=== PATIENT | male | born 1975 | race Caucasian/White ===

== ENCOUNTER 2021-05-11 01:32 | Outpatient (CLI) | payer BC, SELFPAY ==
--- NOTE | 2021-05-11 | DI.RAD_ITS ---
Exam(s) RF BARIUM SWALLOW EXAM: RF BARIUM SWALLOW CLINICAL HISTORY: DYSPHAGIA PHARYNGEAL PHASE, R13.13 TECHNIQUE: 2D and realtime digital imaging was performed. CONTRAST MATERIAL: Oral barium contrast was administered. COMPARISON: No exams were available for comparison FINDINGS: CHEST X-RAY: The heart and pulmonary vasculature are within normal limits. The lungs are clear. No pl eural effusion or pneumothorax is present. The bones are within normal limits fo the patient's age. ESOPHAGRAM: The esophagus is patent with no evidence for erosions, fold thickening, strictures, or ma sses. With regards to the motility, there is a normal primary stripping wave. The patient swallowed a barium tablet without complication. No tertiary contractions were noted. There is a small hiatal h ernia. No gastroesophageal reflux occurred during the examination. Penetration of barium did occur during the examination but no aspiration occurred. IMPRESSION: 1. Small hiatal hernia. 2. No evidence of obstruction or aspiration. RADIATION DOSE DELIVERED: Ka,r=22.8 mGy
[2021-05-11] MEDS: Barium Sulfate 60% W/V 355 ML BTL PO (11:17)
[2021-05-11] MEDS: Barium Sulfate 700 MG TAB PO (11:17)
[2021-05-11] MEDS: Simethicone/Sod Bicarb/Cit Ac, 4 gram PACKET 1 PACKET PO (11:18)
== END 2021-05-11 01:52 ==
PROVIDERS: PCP Nurse Practitioner; Visit Provider Family Medicine
DX: R13.13 Dysphagia, pharyngeal phase (principal); K44.9 Diaphragmatic hernia without obstruction or gangrene
CPT/HCPCS: 74221; J3490

== ENCOUNTER 2021-10-01 01:15 | Outpatient (CLI) | payer BC, SELFPAY ==
[2021-10-01 12:33] LABS: Source Nasal/Nares
[2021-10-01 19:01] LABS: COVID-19 PCR Negative (Negative)
== END 2021-10-01 01:16 | disposition home or self-care (01) ==
LOC: LBO 01:18
PROVIDERS: PCP Family Medicine; Visit Provider Surgery
DX: Z20.822 Contact with and (suspected) exposure to COVID-19 (principal); Z01.818 Encounter for other preprocedural examination
CPT/HCPCS: 87635

== ENCOUNTER 2021-12-03 02:53 | Outpatient (CLI) | payer BC, SELFPAY ==
[2021-12-03 12:44] LABS: Source Nasal/Nares
[2021-12-03 15:37] LABS: COVID-19 PCR Negative (Negative)
== END 2021-12-03 02:54 | disposition home or self-care (01) ==
PROVIDERS: PCP Family Medicine; Visit Provider Surgery
DX: Z20.822 Contact with and (suspected) exposure to COVID-19 (principal); Z01.818 Encounter for other preprocedural examination
CPT/HCPCS: 87635

== ENCOUNTER 2021-12-05 09:03 | Day surgery (SDC) | payer BC, SELFPAY ==
--- NOTE | 2021-12-05 06:32 | W.PM.HP.N ---
Date of service: 12/05/21 Assessment and Plan Assessment and plan (1) Esophageal dysphagia: Status: Acute Assessment and plan: Mr. Burkett is a pleasant 46-year-old gentleman with dysphagia.? Barium swallow back in 2016 showed a small hiatal hernia and no evidence of obstruction.? I discussed the differential diagnosis with him.? Most commonly dysphagia is due to reflux esophagitis.? Other diagnoses could be a mass although this is quite unlikely with a normal barium swallow in 2017.? He also could have dysmotility which again is more rare.? I recommend starting with an upper endoscopy.? The procedure was described to him in detail and with reviewed the risks and the benefits. Risks, benefits and complications have been reviewed. Complications include but are not limited to bleeding, pain, perforation, sore throat, aspiration, and adverse reaction to the medications.? Questions were entertained and answered to their satisfaction and they wished to proceed. No guarantees were given or implied. Proceed with EGD under sedation History of Present Illness Narrative: Mr. Burkett is a 46-year-old gentleman who has been having dysphagia symptoms for 4 to 5 years.? He said it started about 4 to 5 years ago at that time it was a yearly occurrence.? In the last couple years it started to become a monthly occurrence and now it has at least once or twice a week.? He feels like things are getting stuck in esophagus.? It is mostly solids.? Sometimes he has to make himself gag in order for it to come back up.? He does feel like the food has gotten stuck a couple times for a few hours before it eventually went down into his stomach.? He has no nausea or vomiting.? He does not complain of any heartburn or reflux type symptoms.? He is not taking any antacids.? He has no shortness of breath.? He also complains of a morning cough which usually is productive of very thick white to pale yellow mucus.? He did see Dr. Perdomo and had a barium swallow done in April of 2017.? The barium swallow showed a small hiatal hernia but no evidence of obstruction he has never had an upper endoscopy.? He has no family history of esophageal or gastric cancer.? His mother did have pancreatic cancer in her early 60s.? He had a colonoscopy many years ago and apparently had some benign polyps.? He states that it was done in [place].? I will see if his primary care physician has the records of this colonoscopy. He has no cardiac history.? He denies chest pain or shortness of breath with activity. Current symptoms: Denies dysphagia, Denies hoarseness and Denies cough Review of Systems All systems reviewed & are unremarkable except as noted in HPI and below PFSH All Active Problems Esophageal dysphagia (Acute) Medical History Acne rosacea Allergic rhinitis Ankle pain, right Dysphagia, pharyngeal phase Eczema Family history of prostate cancer Follicular cyst of skin and subcutaneous tissue Lower urinary tract symptoms Obstructive sleep apnea Pain in right shoulder Skin lesion Tinea unguium Surgical History H/O removal of neck cyst @ [facility] – [place] - Teenager History of colonoscopy with polypectomy Family History Mother Pancreatic cancer Father CHF (congestive heart failure) Maternal Uncle History of prostate cancer Social History Smoking/Tobacco Use Status: Never Smoking risk assessment performed?: Yes Alcohol Intake: never Drug use: Never Substance use type: does not use Number of Children: 2 Pets and animals: Yes (2) Pets and animals: dog(s) Do you feel safe at home: Yes Do you feel safe in your relationship?: Yes Meds Allergies and Home Medications Allergies Allergy/AdvReac Type Severity Reaction Status Date / Time No Known Allergies Allergy Unverified 12/04/21 11:39 Dust mites Allergy Uncoded 12/04/21 11:39 Home Medications Medication Instructions Recorded Confirmed Type desloratadine-pseudoephedrine ER 1 tab PO Q12H PRN 05/18/21 12/04/21 History 2.5 mg-120 mg tab,ext.release mp 12hr (Clarinex-D 12 HOUR) multivitamin 1 tab PO DAILY 07/10/21 12/04/21 History Exam HENMT Head: normocephalic and atraumatic Resp Effort & Inspection: normal respiratory effort Auscultation: clear to auscultation bilaterally Cardio Rate: regular rate Rhythm: regular rhythm
--- NOTE | 2021-12-05 06:34 | W.PM.DSUDISC ---
Discharge Plan Disposition Patient Disposition: HOME Condition: Good Discharge Details Reason For Visit: EGD Attending Provider: Yue Jerome Primary Care Provider: Donell Mccullough Home Meds and New Rx's Prescriptions: No Action multivitamin Tablet 1 tab PO DAILY Clarinex-D 12 HOUR 2.5-120 mg tablet, ER multiphase 12 hr 1 tab PO Q12H PRN Discharge Instructions Additional Instructions: Findings: Follow up: Please call if you develop: fevers >101.5 Nausea or Vomiting Abdominal pain that is not transient Rectal bleeding that is more then a tbsp A hard abdomen and inability to pass gas DAY SURGERY UNIT POST ENDOSCOPY INSTRUCTIONS Instructions for everyone who is given Anesthesia: For your safety, please do the following for the next 24 Hours: a. Do not drive or operate dangerous equipment b. Do not drink alcohol beverages or use any recreational drugs for the first 24 hours or while taking pain medications. The medications in your body may have a reaction that can be dangerous. c. Do not make any important decisions or sign any important papers 1. Generally there are no restrictions on your activity after a day or so has gone by, but you may feel a bit fatigued for a few days. 2. After you arrive home you may have a light meal and return to a normal diet as you can tolerate it without feeling sick to your stomach. 3. After surgery, you may feel pain or discomfort. This should be only transient, but if it persists please contact your doctor. 4. If there are any questions regarding the findings of your procedure, please feel free to contact your doctor. 6. If you are unable to contact your doctor with a problem, contact the hospital at [phone]. 7. Continue all your regular medications unless directed otherwise. I understand the above instructions and have no questions. Signature of Patient or Responsible Adult Escort Date/Time Name of Responsible Adult Escort Signature of Nurse Date/Time Activity:: Activity as Tolerated Diet:: As Tolerated DS: Diagnosis Discharge Diagnosis (1) Esophageal dysphagia: Status: Acute
[2021-12-05 09:10] VITALS: BP 116/91; PULSE 84; RESP 18; O2SAT 97
[2021-12-05] MEDS: Lactated Ringers 1,000 ML 80 ML IV (09:45)
--- NOTE | 2021-12-05 09:51 | W.ANESPRE ---
General Info Date of Service Date Performed: 12/05/21 Height: 5 ft 9 in Weight: 93.9 kg Body Mass Index (BMI): 30.5 Surgical Procedure: Operation Date: 12/05/21 11:20 Proposed Procedure Side Surgeon p Gastroscopy Yue Jerome MD Meds Allergies and Home Medications Allergies Allergy/AdvReac Type Severity Reaction Status Date / Time No Known Allergies Allergy Unverified 12/05/21 09:29 Dust mites Allergy Uncoded 12/05/21 09:29 Home Medication Medication Instructions Recorded desloratadine-pseudoephedrine ER 1 tab PO Q12H PRN 05/18/21 2.5 mg-120 mg tab,ext.release mp 12hr (Clarinex-D 12 HOUR) multivitamin 1 tab PO DAILY 07/10/21 acetylcysteine 600 mg capsule (NAC) 600 mg PO BID 12/05/21 ascorbic acid (vitamin C) 1,000 mg 1 g PO BID 12/05/21 tablet (Vitamin C) Current Visit Medications: Current Medications Generic Name Dose Route Start Last Admin Trade Name Percyq PRN Reason Stop Dose Admin Hyoscyamine Sulfate 0.125 mg 12/05/21 06:35 Hyoscyamine 0.125 Mg Sl/Oral/Chew SL DIRECTED PRN Ringer's Solution 1,000 mls @ 80 mls/hr 12/05/21 06:00 IV 01/03/22 23:59 [facility] IV Miscellaneous Supplies 1 each 12/05/21 06:00 Iv Access IV 01/03/22 23:59 DIRECTED ARJUN Ondansetron HCl 4 mg 12/05/21 06:35 Ondansetron 4 Mg/2 Ml Vial IVP Q4H PRN PRN Nausea / Vomiting Sodium Chloride 0 ml 12/05/21 06:00 Normal Saline Flush 10 Ml Syr IV 01/03/22 23:59 PRN PRN Sodium Chloride 0 ml 12/05/21 06:00 Normal Saline 10 Ml Vial IJ 01/03/22 23:59 DIRECTED PRN Sterile Water 0 ml 12/05/21 06:00 Water,Injection,Sterile 10 Ml Vial IJ 01/03/22 23:59 DIRECTED PRN PFSH Active Problems Active Problems: Problem Status Onset Code Esophageal dysphagia R13.19 Medical History Medical History Acne rosacea Allergic rhinitis Ankle pain, right Dysphagia, pharyngeal phase Eczema Family history of prostate cancer Follicular cyst of skin and subcutaneous tissue Lower urinary tract symptoms Obstructive sleep apnea Pain in right shoulder Skin lesion Tinea unguium Surgical History Surgical History H/O removal of neck cyst @ [facility] [place] - Teenager History of colonoscopy with polypectomy Tobacco Smoking/Tobacco Use Status: Never Alcohol Alcohol Intake: never Substance Use Substance use: Never Substance use type: does not use Vital Signs and Lab Results Vital Signs Most Recent Vital Signs in EMR: Most Recent Vital Signs Pulse Resp BP Pulse Ox 84 18 116/91 H 97 12/05/21 09:10 12/05/21 09:10 12/05/21 09:10 12/05/21 09:10 Lab Results Blood Type / Crossmatch: No Data to Display Complete Blood Count: No Data to Display Complete Metabolic Panel: No Data to Display Liver Function Panel: No Data to Display Coagulation Panel: No Data to Display Cardiac Panel: No Data to Display Arterial Blood Gas: No Data to Display Venous Blood Gas: No Data to Display Pancreas Panel: No Data to Display Thyroid Panel: No Data to Display Infectious Disease: Coronavirus (COVID-19)(PCR) Negative (Negative) 12/03/21 10:20 Coronavirus 2019 Source Nasal/Nares 12/03/21 10:20 Blood Cultures: No Data to Display Toxicology Panel: No Data to Display Anesthesia Assessment and Plan Anesthesia History Personal History: No History of Anesthesia Complications Family History: No Family History of Anesthesia Complications Exercise Tolerance Exercise Tolerance: Metabolic Equivalents>4 Pertinent Negatives Pertinent Negatives: No Symptoms of GERD, No Major Cardiovascular Symptoms or Complaints and No Major Pulmonary Symptoms or Complaints Cardiac & Pulmonary Exam Cardiac Exam: Normal S1/S2 Heart Sounds Pulmonary Exam: Clear Bilateral Breath Sounds Implantable Cardiac Device Does patient have a Pacemaker or an ICD?: No Airway Exam Known Difficult Airway: No ASA Classification ASA Score: ASA 2 Emergency Case?: No NPO Status NPO Status: NPO Clears >2 hours, Solids >8 hours Anesthesia Plan Resuscitation Status: Full Code Anesthesia Technique: General Anesthesia Airway Planned: Natural Airway Monitors Used: Standard Monitors
--- NOTE | 2021-12-05 10:16 | PDOC.ANES ---
Date of service: 12/05/21 Time of Service: 10:17 Anesthesia Note Report Anesthesia Note: Evaluated patient at beside and appears somewhat unwell. Patient reports a hoarse voice and has some swollen eyes. Over the weekend, reports feeling achy with a scratchy throat. Discussed constellation of symptoms with Dr. Jerome, and both of us are in agreeance to postpone for 2-4/weeks until patient as baseline. Patient verbalizes understanding and will call the office to reschedule.
--- NOTE | 2021-12-05 10:39 | NUR.NOTE ---
Addendum entered by Jane Tavera 12/05/21 10:47: Pt. to contact MD office to reschedule Original Note: 1010: Katie Mendes CRNA, in to see pt. MICH explained to pt. that she had spoken to MD and because of his recent symptoms (hoarse throat) it is best to postpone procedure for 2-4 weeks when he is symptom free. Pt. agreeable to plan. Breakfast provided to pt. Pt. contacted spouse who will be here in 1/2 hour to pick him up, [place] 1035: Pt. given option to wait in DSU, in waiting room or outside for ride since he did not receive anesthesia. Pt. escorted from DSU by this nurse.Nursing Note:
== END 2021-12-05 09:04 | disposition home or self-care (01) ==
LOC: SUR 09:04
PROVIDERS: PCP Family Medicine; Visit Provider Surgery
DX: R13.10 Dysphagia, unspecified (principal); Z53.8 Procedure and treatment not carried out for other reasons

== ENCOUNTER 2021-12-28 08:49 | Outpatient (CLI) | payer BC, MEDICAID, SELFPAY ==
--- NOTE | 2021-12-28 08:30 | DI.RAD_ITS ---
Exam(s) XR SHOULDER RT COMPLETE 2+V EXAM: XR SHOULDER RT COMPLETE 2+V CLINICAL HISTORY: RIGHT SHOULDER PAIN. TECHNIQUE: 2D digital imaging was performed of the right shoulder. Four images were obtained. AP, Grashey, Y-view and axillary views were obtained. COMPARISON: No exams were available for comparison FINDINGS: BONES: No acute fracture is present. No bony destructive lesion is seen. JOINTS: No dislocation present. SOFT TISSUE: Calcification adjacent to the greater tuberosity consistent with calcific tendinitis. IMPRESSION: Calcific tendinitis. DATA REPOSITORY: RADIATION DOSE DELIVERED:
== END 2021-12-28 08:50 | disposition home or self-care (01) ==
LOC: DIORS 08:49
PROVIDERS: PCP Family Medicine; Referring Provider Family Medicine; Visit Provider Student in an Organized Health Care Education/Training Program
DX: M75.31 Calcific tendinitis of right shoulder (principal)
CPT/HCPCS: 73030

== ENCOUNTER 2022-01-07 02:25 | Outpatient (CLI) | payer BC, MEDICAID, SELFPAY ==
[2022-01-07 10:44] LABS: Source Nasal/Nares
[2022-01-07 15:46] LABS: COVID-19 PCR Positive (Negative)
== END 2022-01-07 02:26 | disposition home or self-care (01) ==
LOC: LBO 02:25
PROVIDERS: PCP Family Medicine; Visit Provider Surgery
DX: Z20.822 Contact with and (suspected) exposure to COVID-19 (principal); Z01.818 Encounter for other preprocedural examination
CPT/HCPCS: 87635

== ENCOUNTER 2022-03-13 07:59 | Day surgery (SDC) | payer BC, MEDICAID, SELFPAY ==
--- NOTE | 2022-03-13 06:26 | W.PREOPHP ---
Assessment and Plan Assessment and plan (1) Esophageal dysphagia: Status: Acute Assessment and plan: Mr. Burkett is a pleasant 46-year-old gentleman with dysphagia.? Barium swallow back in 2017 showed a small hiatal hernia and no evidence of obstruction.? I discussed the differential diagnosis with him.? Most commonly dysphagia is due to reflux esophagitis.? Other diagnoses could be a mass although this is quite unlikely with a normal barium swallow in 2017.? He also could have dysmotility which again is more rare.? I recommend starting with an upper endoscopy.? The procedure was described to him in detail and with reviewed the risks and the benefits. Risks, benefits and complications have been reviewed. Complications include but are not limited to bleeding, pain, perforation, sore throat, aspiration, and adverse reaction to the medications.? Questions were entertained and answered to their satisfaction and they wished to proceed. No guarantees were given or implied. Anesthesia: general (without airway) Previous surgical intolerances: No Previous surgical complications: No Pulmonary risk factors: No Date of surgery: 03/13/22 Planned procedure: Yes Sleep apnea risks: No Can climb one flight of stairs (12-13 steps) in less than 30 seconds without stopping and without symptoms: Yes The surgery proposed for this patient is: low risk Active cardiac conditions: none Active risk factors: none ASA (acetylsalicylic acid): not used Beta blockers: not used Proceed with EGD under sedation History of Present Illness Narrative: Mr. Burkett is a 46-year-old gentleman who has been having dysphagia symptoms for 4 to 5 years.? He said it started about 4 to 5 years ago at that time it was a yearly occurrence.? In the last couple years it started to become a monthly occurrence and now it has at least once or twice a week.? He feels like things are getting stuck in esophagus.? It is mostly solids.? Sometimes he has to make himself gag in order for it to come back up.? He does feel like the food has gotten stuck a couple times for a few hours before it eventually went down into his stomach.? He has no nausea or vomiting.? He does not complain of any heartburn or reflux type symptoms.? He is not taking any antacids.? He has no shortness of breath.? He also complains of a morning cough which usually is productive of very thick white to pale yellow mucus.? He did see Dr. Perdomo and had a barium swallow done in April of 2017.? The barium swallow showed a small hiatal hernia but no evidence of obstruction. He has never had an upper endoscopy.? He has no family history of esophageal or gastric cancer.? His mother did have pancreatic cancer in her early 60s.? He had a colonoscopy many years ago and apparently had some benign polyps.? He states that it was done in [place].? I will see if his primary care physician has the records of this colonoscopy. He has no cardiac history.? He denies chest pain or shortness of breath with activity. Current symptoms: Denies dysphagia, Denies hoarseness and Denies cough Review of Systems All systems reviewed & are unremarkable except as noted in HPI and below PFSH All Active Problems Tendonitis of long head of biceps brachii of right shoulder (Acute) De Quervain's tenosynovitis, left (Acute) Calcific tendinitis of right shoulder (Acute) Steroid injection: 12/28/2021 Esophageal dysphagia (Acute) Medical History Acne rosacea Allergic rhinitis Ankle pain, right Dysphagia, pharyngeal phase Eczema Family history of prostate cancer Follicular cyst of skin and subcutaneous tissue Lower urinary tract symptoms Obstructive sleep apnea Pain in right shoulder Skin lesion Tinea unguium [place] [facility] [place] History of colonoscopy with polypectomy Family History Mother Pancreatic cancer Father CHF (congestive heart failure) Maternal Uncle History of prostate cancer Social History Smoking/Tobacco Use Status: Never Smoking risk assessment performed?: Yes Alcohol Intake: never Drug use: Never Substance use type: does not use Number of Children: 2 Pets and animals: Yes (2) Pets and animals: dog(s) Do you feel safe at home: Yes Do you feel safe in your relationship?: Yes Meds Allergies and Home Medications Allergies Allergy/AdvReac Type Severity Reaction Status Date / Time No Known Allergies Allergy Verified 03/13/22 08:03 Dust mites Allergy Uncoded 03/12/22 13:49 Home Medications Medication Instructions Recorded Confirmed Type desloratadine-pseudoephedrine ER 1 tab PO Q12H PRN 05/18/21 03/12/22 History 2.5 mg-120 mg tab,ext.release mp 12hr (Clarinex-D 12 HOUR) multivitamin 1 tab PO DAILY 07/10/21 03/13/22 History acetylcysteine 600 mg capsule (NAC) 600 mg PO BID 12/05/21 03/13/22 History ascorbic acid (vitamin C) 1,000 mg 1 g PO BID 12/05/21 03/13/22 History tablet (Vitamin C) cholecalciferol (vitamin D3) 10 10 mcg PO DAILY 02/22/22 03/13/22 History mcg (400 unit) capsule zinc acetate 50 mg (zinc) capsule 50 mg PO DAILY 02/22/22 03/13/22 History (Oseas) Exam Const General: comfortable and no acute distress [facility] Head: normocephalic and atraumatic Resp Effort & Inspection: normal respiratory effort Auscultation: clear to auscultation bilaterally Cardio Rate: regular rate Rhythm: regular rhythm
--- NOTE | 2022-03-13 06:30 | W.PM.ENDDOP ---
Date of service: 03/13/22 Time of Service: 09:21 Endoscopy Report DATE OF PROCEDURE: 03/13/22 PRE-OP DIAGNOSIS: Dysphagia POST-OP DIAGNOSIS: same (and inflammation of the duodenum and esophagus) PROCEDURE: EGD with biopsies SURGEON: Yue Jerome ANESTHESIA TYPE: General:No Airway ESTIMATED BLOOD LOSS: 5 PATHOLOGY: other (duodenum, antrum, GE junction) COMPLICATIONS: None DISPOSITION: same day INDICATIONS: Mr. Burkett is a pleasant 46-year-old gentleman with dysphagia.? Barium swallow back in 2017 showed a small hiatal hernia and no evidence of obstruction.? I discussed the differential diagnosis with him.? Most commonly dysphagia is due to reflux esophagitis.? Other diagnoses could be a mass although this is quite unlikely with a normal barium swallow in 2017.? He also could have dysmotility which again is more rare.? I recommend starting with an upper endoscopy.? The procedure was described to him in detail and with reviewed the risks and the benefits. Risks, benefits and complications have been reviewed. Complications include but are not limited to bleeding, pain, perforation, sore throat, aspiration, and adverse reaction to the medications.? Questions were entertained and answered to their satisfaction and they wished to proceed. No guarantees were given or implied. FINDINGS: inflammation of the duodenum, antrum and GE junction PROCEDURE DESCRIPTION: After informed consent was obtained the patient was take to the procedure room and placed in a supine position. Monitors were applied and a time out was done. The patients name, date of , procedure type, allergies to medications and metal in their body was reviewed. A bite block was placed and the patient was sedated. Once sedated and comfortable the gastroscope was advanced through the oropharynx which was grossly normal into the esophagus. The proximal and mid-esophagus were normal. In the distal esophagus there was mild inflammation noted. The scope was advanced into the stomach and through the pylorus into the 3rd portion of the duodenum. The duodenum was noted to have inflammation in the 1st portion. Biopsies were done. The scope was retracted back into the stomach and biopsies were done to rule out H. pylori. There were no ulcers. The scope was retroflexed. The cardia and fundus were noted to be normal. There was a small hiatal hernia noted. The scope was retracted back into the esophagus and biopsies were done of the GE junction to rule out Guerin's. The Z line was regular. The GE junction was at 35 cm. There was a schatzki's ring. The scope was removed and the patient was woken up and taken back to [facility] in stable condition.
--- NOTE | 2022-03-13 06:31 | W.PM.DSUDISC ---
Discharge Plan Disposition Patient Disposition: HOME Condition: Good Discharge Details Reason For Visit: egd Attending Provider: Yue Jerome Primary Care Provider: Donell Mccullough Home Meds and New Rx's Prescriptions: New omeprazole 40 mg capsule,delayed release(DR/EC) 40 mg PO DAILY Qty: 90 3RF sucralfate [Carafate] 1 gram tablet 1 g PO QID Qty: 56 0RF Rx Instructions: Take 30 minutes before meals and at bedtime Continued multivitamin Tablet 1 tab PO DAILY cholecalciferol (vitamin D3) 10 mcg (400 unit) capsule 10 mcg PO DAILY Galzin 50 mg (zinc) capsule 50 mg PO DAILY Clarinex-D 12 HOUR 2.5-120 mg tablet, ER multiphase 12 hr 1 tab PO Q12H PRN ascorbic acid (vitamin C) [Vitamin C] 1,000 mg Tablet 1 g PO BID acetylcysteine [NAC] 600 mg Capsule 600 mg PO BID Discharge Instructions Instructions: GERD (Gastroesophageal Reflux Disease) (GEN), Diet for Stomach Ulcers and Gastritis (GEN) Additional Instructions: Findings: inflammation of the small intestine (duodenum) and evidence of acid reflux into the esophagus Follow up: 4 weeks Please call if you develop: fevers >101.5 Nausea or Vomiting Abdominal pain that is not transient Rectal bleeding that is more then a tbsp A hard abdomen and inability to pass gas DAY SURGERY UNIT POST ENDOSCOPY INSTRUCTIONS Instructions for everyone who is given Anesthesia: For your safety, please do the following for the next 24 Hours: a. Do not drive or operate dangerous equipment b. Do not drink alcohol beverages or use any recreational drugs for the first 24 hours or while taking pain medications. The medications in your body may have a reaction that can be dangerous. c. Do not make any important decisions or sign any important papers 1. Generally there are no restrictions on your activity after a day or so has gone by, but you may feel a bit fatigued for a few days. 2. After you arrive home you may have a light meal and return to a normal diet as you can tolerate it without feeling sick to your stomach. 3. After surgery, you may feel pain or discomfort. This should be only transient, but if it persists please contact your doctor. 4. If there are any questions regarding the findings of your procedure, please feel free to contact your doctor. 6. If you are unable to contact your doctor with a problem, contact the hospital at [phone]. 7. Continue all your regular medications unless directed otherwise. I understand the above instructions and have no questions. Signature of Patient or Responsible Adult Escort Date/Time Name of Responsible Adult Escort Signature of Nurse Date/Time Referrals: Yue Jerome MD [ [facility] STAFF PHYSICIAN] - 04/12/22 9:00 am Activity:: Activity as Tolerated Diet:: low acid Discharge Orders Discharge Orders: Discharge Order (Routine); Ordered 03/13/22 Ordered By: Yue Jerome DS: Diagnosis Discharge Diagnosis (1) Esophageal dysphagia: Status: Acute
[2022-03-13 08:05] VITALS: BP 114/78; PULSE 76; RESP 16; TEMP 36.6; O2SAT 96
[2022-03-13] MEDS: Lactated Ringers 1,000 ML 80 ML IV (08:26)
--- NOTE | 2022-03-13 08:37 | ANES.PREOP_ITS ---
General Info Date of Service Date Performed: 03/13/22 Height: 5 ft 9 in Weight: 94.5 kg Body Mass Index (BMI): 30.7 Surgical Procedure: Operation Date: 03/13/22 09:20 Proposed Procedure Side Surgeon p Gastroscopy Yue Jerome MD Meds Allergies and Home Medications Allergies Allergy/AdvReac Type Severity Reaction Status Date / Time No Known Allergies Allergy Verified 03/13/22 08:03 Dust mites Allergy Uncoded 03/12/22 13:49 Home Medication Medication Instructions Recorded desloratadine-pseudoephedrine ER 1 tab PO Q12H PRN 05/18/21 2.5 mg-120 mg tab,ext.release mp 12hr (Clarinex-D 12 HOUR) multivitamin 1 tab PO DAILY 07/10/21 acetylcysteine 600 mg capsule (NAC) 600 mg PO BID 12/05/21 ascorbic acid (vitamin C) 1,000 mg 1 g PO BID 12/05/21 tablet (Vitamin C) cholecalciferol (vitamin D3) 10 10 mcg PO DAILY 02/22/22 mcg (400 unit) capsule zinc acetate 50 mg (zinc) capsule 50 mg PO DAILY 02/22/22 (Galzin) Current Visit Medications: Current Medications Generic Name Dose Route Start Last Admin Trade Name Freq PRN Reason Stop Dose Admin Hyoscyamine Sulfate 0.125 mg 03/13/22 06:31 Hyoscyamine 0.125 Mg Sl/Oral/Chew SL DIRECTED PRN Ringer's Solution 1,000 mls @ 80 mls/hr 03/13/22 06:00 03/13/22 08:26 IV 04/11/22 23:59 80 mls/hr INFUSION ARJUN Administration IV Miscellaneous Supplies 1 each 03/13/22 06:00 Iv Access IV 04/11/22 23:59 DIRECTED ARJUN Ondansetron HCl 4 mg 03/13/22 06:31 Ondansetron 4 Mg/2 Ml Vial IVP Q4H PRN PRN Nausea / Vomiting Sodium Chloride 0 ml 03/13/22 06:00 Normal Saline Flush 10 Ml Syr IV 04/11/22 23:59 PRN PRN Sodium Chloride 0 ml 03/13/22 06:00 Normal Saline 10 Ml Vial IJ 04/11/22 23:59 DIRECTED PRN Sterile Water 0 ml 03/13/22 06:00 Water,Injection,Sterile 10 Ml Vial IJ 04/11/22 23:59 DIRECTED PRN PFS Active Problems Active Problems: Problem Status Onset Code Tendonitis of long head of biceps brachii of right shoulder M75.21 De Quervain's tenosynovitis, left M65.4 Calcific tendinitis of right shoulder M75.31 Esophageal dysphagia R13.19 Medical History Medical History Acne rosacea Allergic rhinitis Ankle pain, right Dysphagia, pharyngeal phase Eczema Family history of prostate cancer Follicular cyst of skin and subcutaneous tissue Lower urinary tract symptoms Obstructive sleep apnea Pain in right shoulder Skin lesion Tinea unguium Surgical History Surgical History H/O removal of neck cyst @ [facility] – [place] - Teenager History of colonoscopy with polypectomy Tobacco Smoking/Tobacco Use Status: Never Alcohol Alcohol Intake: never Substance Use Substance use: Never Substance use type: does not use Vital Signs and Lab Results Vital Signs Most Recent Vital Signs in EMR: Most Recent Vital Signs Temp Pulse Resp BP Pulse Ox 36.6 C 76 16 114/78 96 03/13/22 08:05 03/13/22 08:05 03/13/22 08:05 03/13/22 08:05 03/13/22 08:05 Lab Results Blood Type / Crossmatch: No Data to Display Complete Blood Count: No Data to Display Complete Metabolic Panel: No Data to Display Liver Function Panel: No Data to Display Coagulation Panel: No Data to Display Cardiac Panel: No Data to Display Arterial Blood Gas: No Data to Display Venous Blood Gas: No Data to Display Pancreas Panel: No Data to Display Thyroid Panel: No Data to Display Infectious Disease: No Data to Display Blood Cultures: No Data to Display Toxicology Panel: No Data to Display Anesthesia Assessment and Plan Anesthesia History Personal History: No History of Anesthesia Complications Family History: No Family History of Anesthesia Complications Exercise Tolerance Exercise Tolerance: Metabolic Equivalents>4 Pertinent Negatives Pertinent Negatives: No Major Cardiovascular Symptoms or Complaints, No Major Pulmonary Symptoms or Complaints and No History of CVA/TIA Cardiac & Pulmonary Exam Cardiac Exam: Normal S1/S2 Heart Sounds Pulmonary Exam: Clear Bilateral Breath Sounds Cardiac and Pulmonary Comment:: Constant throat clearing, phlegm in am Implantable Cardiac Device Does patient have a Pacemaker or an ICD?: No Airway Exam Known Difficult Airway: No Mallampati Class: 1 Mouth Opening: Normal (> 3cm) Thyromental Distance: Greater than 3 cm Neck Range of Motion: Full ROM Neck Circumference: Normal Teeth Condition: Normal Dentition ASA Classification ASA Score: ASA 2 Emergency Case?: No NPO Status NPO Status: NPO Clears >2 hours, Solids >8 hours Anesthesia Plan Resuscitation Status: Full Code Anesthesia Technique: General Anesthesia Airway Planned: Natural Airway Monitors Used: Standard Monitors Preoperative Comments:: Endoscopy for dysphagia
[2022-03-13 08:52] VITALS: BMI 30.7
--- NOTE | 2022-03-13 09:05 | BOWEL_PTH ---
PATIENT: Demarco Burkett LOC: [facility] U#:[id number] AGE/SX: 46/M ROOM: RE03/13/[address]: Yue Jerome MD : 1975 BED: DIS: 03/13/2022 SPEC #: [id number] RECD: 03/13/22 12:47 STATUS: SMITHA REQ #: [id number] CESAR: 03/13/22 09:[address]: Yue Jerome DEPT: Surgical Specimen RECD BY: Tita Pablo ENTERED: 03/13/22 12:49 SP TYPE: Bowel OTHR DR: Donell Mccullough Tissues: 1 - BIOPSY BOWEL 2 - STOMACH BIOPSY 3 - ESOPHAGUS BIOPSY Procedures: GROSS AND MICRO LEVEL 4 Comments: [id number]
[2022-03-13 09:16] VITALS: BP 109/77; PULSE 80; RESP 16; TEMP 36.8; O2SAT 93
--- NOTE | 2022-03-13 09:36 | W.ANESPOSTOP ---
Postoperative Evaluation Date, Time and Location Date Performed: 03/13/22 Time Performed: 09:18 Patient Location: Day Surgery Unit Vital Signs Most Recent Imported Vital Signs: Most Recent Vital Signs Temp Pulse Resp BP Pulse Ox 36.8 C 80 16 109/77 93 03/13/22 09:16 03/13/22 09:16 03/13/22 09:16 03/13/22 09:16 03/13/22 09:16 Pain Score Most Recent Pain Score: Most Recent Pain Score Pain Level 0 03/13/22 09:16 Assessment Mental Status: Awake (Alert & Oriented to Patient Baseline) Airway and Respiratory Function: Patent airway with normal (patient baseline) respiratory exam Cardiovascular Function: Hemodynamically Stable Hydration Status: Adequately Hydrated Nausea & Vomiting: No Nausea or Vomiting Pain: Pt. Denies Any Pain Peripheral Nerve Block: Patient did not receive a nerve block
[2022-03-13 09:44] VITALS: BP 106/77; PULSE 64; RESP 16; TEMP 36.8; O2SAT 97
== END 2022-03-13 10:15 | disposition home or self-care (01) ==
PROVIDERS: PCP Family Medicine; Visit Provider Surgery
PROC: 0DJ68ZZ Inspection of Stomach, Via Natural or Artificial Opening Endoscopic (ICD-10-PCS; CPT 43235; principal; 2022-03-13 09:15)
DX: K22.2 Esophageal obstruction (principal); K29.80 Duodenitis without bleeding; K20.90 Esophagitis, unspecified without bleeding; K44.9 Diaphragmatic hernia without obstruction or gangrene; K22.89 Other specified disease of esophagus; K31.89 Other diseases of stomach and duodenum
CPT/HCPCS: 43239; 88305

== ENCOUNTER → 2022-03-29 00:54 | Outpatient (CLI) | payer BC, MEDICAID, SELFPAY ==
--- NOTE | 2022-03-29 07:00 | DI.MRI_ITS ---
Exam(s) MR UPPER JOINT RT WO EXAM: MR UPPER JOINT RT WO CLINICAL HISTORY: PAIN,calcific tendinitis,m75.31,m75.21,tendonitis long head biceps TECHNIQUE: Multiplanar multisequence MRI of the shoulder was performed. COMPARISON: CR XR SHOULDER RT COMPLETE 2+V from 12/28/2021 FINDINGS: MARROW:There is no evidence of fracture, Hill-Sachs deformity, nor ominous osseous lesions. ROTATOR CUFF MECHANISM: AC JOINT/ACROMIUM: No significant degenerative changes in the AC joint. Undersurface of the acromion appears unremarkable. No obvious impingement in the subacromial arch.. There is no evidence of os acromiale. Supraspinatus: There is a focus of signal dropout in the distal supraspinatus tendon just above the g reater tuberosity, this measuring 9 by 5 by 8 millimeters consistent with calcific tendinitis. There is also some mild tendinitis signal in the supraspinatus. There is no evidence of significant tear. No fluid in the subacromial-subdeltoid bursa. No muscle atrophy. Infraspinatus: No evidence of tear nor atrophy. However, there is a conglomeration of degenerative c ysts in the posterior humeral head immediately subjacent to the infraspinatus insertion. Teres Minor: Intact. No evidence of tear nor muscle atrophy. Subscapularis/anterior cuff: Intact. No abnormal signal at the level of the multipennate insertional fibers. No significant tear nor atrophy. BICEPS TENDON: Normally position in the intertubercular groove. No evidence of tear. No tenosynovitis. LABRUM: No labral tear identified. No evidence of paralabral cyst. LABROLIGAMENTOUS/CAPSULAR COMPLEX: There is no evidence of avulsion of the anterior-inferior labrum, capsule, inferior glenohumeral liga ment complex nor disruption of the scapular periosteum to suggest the presence of a Bankart lesion. GLENOHUMERAL JOINT: No joint effusion nor obvious loose intra-articular bodies. No chondral defects. No osteophytes. No degenerative subarticular cysts in the osseous glenoid. No evidence of capsular tear. QUADRILATERAL SPACE: No evidence of mass in the region of the axillary nerve and dorsal circumflex hu meral vessels. Visualized triceps muscle at this level appears unremarkable. IMPRESSION: 1. Findings are consistent with calcific rotator cuff tendinitis. There is a 9 x 5 x 8 millimeter ca lcification noted within the spinatus insertional fat pad region just above the greater tuberosity. There is mild tendinitis signal but no evidence of supraspinatus tear. No muscle atrophy. 2. Other muscles of the rotator cuff mechanism are intact/unremarkable. 3. Biceps tendon is intact and there are no labral tears. DATA REPOSITORY:
== END ==
PROVIDERS: PCP Family Medicine; Visit Provider Student in an Organized Health Care Education/Training Program
DX: M75.21 Bicipital tendinitis, right shoulder (principal); M75.31 Calcific tendinitis of right shoulder
CPT/HCPCS: 73221

== ENCOUNTER → 2022-04-11 02:11 | Outpatient (CLI) | payer BC, MEDICAID, SELFPAY ==
--- NOTE | 2022-04-11 14:37 | W.PROCNOTE ---
Date of service: 04/11/22 Time of Service: 14:37 Procedure Note Date of procedure: 04/11/22 Procedure: Right Shoulder Injection with Fluoroscopic Guidance Surgeon/Proceduralist/Physician: Demarco Han Procedure Diagnosis: Right Biceps Tendinitis, Calcific Tendinitis Procedure Indications: Demarco has had persistent pain of the RIGHT shoulder. Noninvasive measures have been tried. To serve as both diagnostic and therapeutic, an injection under fluoroscopy was recommended. I had discussed the risks of the procedure and the patient elected to proceed. Procedure Description: Demarco was greeted in the flouroscopy room. The correct side was identified and the consent was reviewed with the patient and signed. The patient was then placed in the supine position on the fluoroscopy table. The RIGHT shoulder was then prepped with Chloraprep. The anterior injection starting point was identiifed by bony landmarks and fluoroscopy. The skin and soft tissue in the tract of the injection was anesthetized with 1% Lidocaine. A spinal needle was then inserted deep into the shoulder joint at the level of the recess between the glenoid and superior humeral head. A small amount of Omnipaque solution was injected to confirm intraarticular placement. Once confirmed, the shoulder was injected with 5cc of 0.5% Bupivicaine and 80mg of Depo-Medrol. A bandaid was placed on the injection site. The patient tolerated the procedure well and noted improvement in pre-injection pain.
[2022-04-11] MEDS: Bupivacaine 0.5% Pres-Free 10 ML VIAL 5 ML IJ (15:01)
[2022-04-11] MEDS: Barium Sulfate 60% W/V 355 ML BTL PO (15:02)
--- NOTE | 2022-04-11 15:03 | DI.RAD_ITS ---
Exam(s) RF JOINT INJECTION FLUORO GUID EXAM: RF JOINT INJECTION FLUORO GUID CLINICAL HISTORY: R SHOULDER INJ UNDER FLUORO,PAIN, TENDONITIS, M75.21 TECHNIQUE: 2D and realtime digital imaging was performed. COMPARISON: No exams were available for comparison FINDINGS: Fluoroscopy is utilized by Dr. Han during right shoulder injection. Hard copy shows intra-artic ular injection. IMPRESSION: RADIATION DOSE DELIVERED: james Starr=0.68 mGy Total DLP
== END ==
PROVIDERS: PCP Family Medicine; Visit Provider Student in an Organized Health Care Education/Training Program
DX: M75.21 Bicipital tendinitis, right shoulder (principal)
CPT/HCPCS: 20610; 77002

== ENCOUNTER → 2023-03-04 01:15 | Outpatient (CLI) | payer BC, SELFPAY ==
--- NOTE | 2023-03-04 06:30 | DI.RAD_ITS ---
Exam(s) XR FOOT RT COMPLETE EXAM: XR FOOT RT COMPLETE CLINICAL HISTORY: Rt foot pain,m79.671. TECHNIQUE: 2D digital imaging was performed of the right foot. Three images were obtained. AP, obl ique and lateral views were obtained. COMPARISON: No exams were available for comparison FINDINGS: BONES: No acute fracture is present. No bony destructive lesion is seen. JOINTS: No dislocation present. SOFT TISSUE: Normal. IMPRESSION: No acute abnormality. DATA REPOSITORY: RADIATION DOSE DELIVERED:
--- NOTE | 2023-03-04 06:30 | DI.RAD_ITS ---
Exam(s) XR FOOT LT COMPLETE EXAM: XR FOOT LT COMPLETE CLINICAL HISTORY: Lt foot pain,m79.672. TECHNIQUE: 2D digital imaging was performed of the left foot. Three images were obtained. AP, obli que and lateral views were obtained. COMPARISON: CR XR FOOT RT COMPLETE from 03/04/2023 FINDINGS: BONES: No acute fracture is present. No bony destructive lesion is seen. JOINTS: No dislocation present. The joint spaces are well maintained. SOFT TISSUE: Normal. IMPRESSION: No acute abnormality. DATA REPOSITORY: RADIATION DOSE DELIVERED:
== END ==
PROVIDERS: PCP Family Medicine; Visit Provider Podiatrist
DX: M79.672 Pain in left foot (principal); M79.671 Pain in right foot
CPT/HCPCS: 73630

== ENCOUNTER 2023-12-09 10:40 | Emergency (ER) | payer BC, SELFPAY ==
[2023-12-09 10:43] VITALS: BP 134/89; PULSE 76; RESP 18; TEMP 36.6; O2SAT 98
--- NOTE | 2023-12-09 10:45 | RT.EKG_ITS ---
APPROVED REPORT Exam: Resting ECG Reason for Exam: syncope Patient Location: E HR:60 bpm ECG Measurements Heart Rate 60 AXIS UT 180 P 28 QRSd 101 QRS 13 QT 390 T 42 QTc 392 Conclusion Sinus rhythm normal axis 60 no stemi
--- NOTE | 2023-12-09 11:00 | DI.RAD_ITS ---
Exam(s) XR CHEST 2V PA LATERAL EXAM: XR CHEST 2V PA LATERAL CLINICAL HISTORY: cough. TECHNIQUE: 2D digital imaging was performed. COMPARISON: CR,RF RF BARIUM SWALLOW from 05/11/2021 FINDINGS: 2 views: There is healed fracture of the right 7th rib again noted. Heart size is normal. The mediastinum is not widened. There are no confluent infiltrates nor pleural effusions. No pulmonary edema. No pneumothorax. IMPRESSION: No acute pulmonary findings nor significant change compared 05/11/2021. DATA REPOSITORY: RADIATION DOSE DELIVERED:
[2023-12-09 11:02] VITALS: PULSE 74; RESP 16; O2SAT 98
[2023-12-09 11:10] VITALS: PULSE 76; RESP 13; O2SAT 97
[2023-12-09] MEDS: methylPREDNISolone SUCC 125 MG VIAL IVP (11:30)
[2023-12-09] MEDS: Normal Saline 1,000 ML 1000 ML IV (11:30)
[2023-12-09] MEDS: Albuterol/Ipratropium 3 ML UPD VIAL UPD ×3 (11:30)
[2023-12-09 11:38] LABS: Abs Immature Grans 0.01 10^3/uL (0.0-0.06); Absolute Basophil Count 0.04 10^3/uL (0.0-0.2); Absolute Eosinophil Count 0.23 10^3/uL (0.0-0.7); Absolute Lymphocyte Count 1.46 10^3/uL (1.2-3.4); Absolute Monocyte Count 0.43 10^3/uL (0.1-0.8); Absolute Neutrophil Count 2.34 10^3/uL (1.2-6.7); Basophils % 0.9 %; Eosinophils % 5.1 %; HCT 43.2 % (40.0-50.0); HGB 14.7 g/dL (13.5-17.5); Immature Grans % 0.2 %; Lymphocytes % 32.4 %; MCH 29.6 pg (27.0-33.0); MCV 87 fL (80-95); MPV 8.5 fL (8.0-11.0); Monocytes % 9.5 %; Neutrophils % 51.9 %; Platelet Count 194 10^3/uL (130-400); RBC 4.97 10^6/uL (4.36-5.78); RDW 13.3 % (11.8-14.1); RDW-SD 41.8 fL; WBC 4.51 10^3/uL (4.4-10.8)
[2023-12-09 11:54] LABS: ALT 26 U/L (16-63); AST 15 U/L (15-37); Albumin 3.5 g/dL (3.4-5.0); Alkaline Phosphatase 53 U/L (46-116); Anion Gap 7.2 mmol/L (3-11); BUN 12 mg/dL (7-18); Bilirubin, Total 0.54 mg/dL (0.2-1.0); CO2 28.8 mmol/L (21.0-32.0); CREATININE 0.8 mg/dL (0.70-1.30); Calcium 8.8 mg/dL (8.5-10.1); Chloride 106 mmol/L (98-107); Estimated GFR 110.53 (mL/min/1.73m2); Glucose 97 mg/dL (74-106); Sodium 142 mmol/L (136-145); Total Protein 7.5 g/dL (6.4-8.2)
[2023-12-09 12:49] VITALS: BP 134/89; PULSE 76; RESP 16; TEMP 36.6; O2SAT 97
[2023-12-09] MEDS: Albuterol HFA 8 GM 60 PUFF INH IH (12:49)
--- NOTE | 2023-12-09 15:11 | ED.GENADUL_ITS ---
Discharge Plan Disposition Patient Disposition: Home Condition: Stable Discharge Details Clinical Impression: Post-COVID chronic cough Primary Care Provider: Donell Mccullough ED Provider: Mark Ortiz Home Meds and New Rx's Prescriptions: New albuterol sulfate [Ventolin HFA] 90 mcg/actuation HFA aerosol inhaler 2 puff inhalation Q4H PRN (Reason: shortness of breath or wheezing) Qty: 8.5 0RF Rx Instructions: use with spacer promethazine 6.25 mg/5 mL syrup 12.5 mg PO Q6H PRN (Reason: cough) Qty: 120 0RF No Action cholecalciferol (vitamin D3) 10 mcg (400 unit) capsule 10 mcg PO DAILY ascorbic acid (vitamin C) [Vitamin C] 1,000 mg Tablet 1 g PO BID acetylcysteine [NAC] 600 mg Capsule 600 mg PO BID Discharge Instructions Instructions: Cough in adults Additional Instructions: * please use albuterol inhaler with spacer every 4 hours or as needed for cough and wheezing * use phenergan syrup to help with cough, nausea * increase water intake * start OTC mucinex and claritin daily to help with cough and drainage * please follow up with your PCP for re-evaluation of ongoing symptoms HPI General Date/Time Provider Initiated Documentation: 12/09/23 10:52 . Limitations to Documentation: no limitations . Information obtained by: patient . HPI Narrative: 48-year-old gentleman with past medical history of COVID diagnosed a few weeks ago presents for evaluation of frequent cough. He reports that his cough is nonproductive. Is not associated with any fever or significant shortness of breath. He reports that when he has a lot of coughing and his eyes kind of go black for a second, he does not lose consciousness. He reports that he had a severe coughing episode while driving today and got scared and came here. He was recently evaluated by his PCP and was started on an antibiotic. However he feels like the antibiotic did not make him significantly better. He denies a smoking history. Related Data Home Medications ?Medication ?Instructions ?Recorded ?Confirmed acetylcysteine 600 mg capsule (NAC) 600 mg PO BID 12/05/21 12/09/23 ascorbic acid (vitamin C) 1,000 mg 1 g PO BID 12/05/21 12/09/23 tablet (Vitamin C) cholecalciferol (vitamin D3) 10 10 mcg PO DAILY 02/22/22 12/09/23 mcg (400 unit) capsule albuterol sulfate 90 mcg/actuation 2 puff inhalation Q4H PRN 12/09/23 aerosol inhaler (Ventolin HFA) shortness of breath or wheezing #8.5 grams promethazine 6.25 mg/5 mL oral 12.5 mg (10 mL) PO Q6H PRN cough 12/09/23 syrup #120 mL Previous Rx's ?Medication ?Instructions ?Recorded albuterol sulfate 90 mcg/actuation 2 puff inhalation Q4H PRN 12/09/23 aerosol inhaler (Ventolin HFA) shortness of breath or wheezing #8.5 grams promethazine 6.25 mg/5 mL oral 12.5 mg (10 mL) PO Q6H PRN cough 12/09/23 syrup #120 mL Allergies Allergy/AdvReac Type Severity Reaction Status Date / Time No Known Allergies Allergy Verified 12/09/23 10:50 Dust mites Allergy Unknown Uncoded 12/09/23 10:50 General Stated Complaint: Dizzy/Sync HIGINIO: 3 Exam Narrative Exam Narrative: Review of Systems: All systems reviewed & are unremarkable except as noted in HPI and below Well-developed, no acute distress NCAT PERRL, normal conjunctiva RRR no murmur Unlabored respiratory effort, no hypoxia, diffuse wheezing bilaterally Nondistended abdomen Extremities w/o deformity, no cyanosis, no edema No rashes or lesions. no focal neurologic deficits Appropriate mood and affect Course Vital Signs Vital signs: Vital Signs Temperature 36.6 C 12/09/23 10:43 Pulse 76 12/09/23 10:43 Respiratory Rate 18 12/09/23 10:43 Blood Pressure 134/89 12/09/23 10:43 Pulse Oximetry 98 12/09/23 10:43 Temperature 36.6 C 12/09/23 12:49 Temperature Source Tympanic 12/09/23 10:43 Pulse 76 12/09/23 12:49 Pulse 76 12/09/23 11:10 Respiratory Rate 16 12/09/23 12:49 Respiratory Effort Normal 12/09/23 10:55 Respiratory Depth Normal 12/09/23 10:55 Respiratory Pattern Normal 12/09/23 10:55 Blood Pressure 134/89 07/16/24 12:49 Blood Pressure Position Sitting 12/09/23 10:43 Pulse Oximetry 97 12/09/23 12:49 Oxygen Delivery Method Room Air 12/09/23 10:43 Oxygen Flow Rate 0 12/09/23 10:43 Pain Level 0 12/09/23 12:49 Lab/Test Results Lab/Test Results: Laboratory Tests Range/Units 12/09/23 11:30 WBC (4.4-10.8) 10^3/uL 4.51 RBC (4.36-5.78) 10^6/uL 4.97 Hgb (13.5-17.5) g/dL 14.7 Hct (40.0-50.0) % 43.2 MCV (80-95) fL 87 MCH (27.0-33.0) pg 29.6 MCHC (32.0-36.0) % 34.0 RDW (11.8-14.1) % 13.3 Plt Count (130-400) 10^3/uL 194 MPV (8.0-11.0) fL 8.5 Immature Gran % % 0.2 Neutrophils % % 51.9 Lymphocytes % % 32.4 Monocytes % % 9.5 Eosinophils % % 5.1 Basophils % % 0.9 Nucleated RBC % (0.0-0.3) % 0.0 Absolute Neutrophils (1.2-6.7) 10^3/uL 2.34 Absolute Lymphocytes (1.2-3.4) 10^3/uL 1.46 Absolute Monocytes (0.1-0.8) 10^3/uL 0.43 Absolute Eosinophils (0.0-0.7) 10^3/uL 0.23 Absolute Basophils (0.0-0.2) 10^3/uL 0.04 Sodium (136-145) mmol/L 142 Potassium (3.5-5.1) mmol/L 4.0 Chloride (98-107) mmol/L 106 Carbon Dioxide (21.0-32.0) mmol/L 28.8 Anion Gap (3-11) mmol/L 7.2 BUN (7-18) mg/dL 12 Creatinine (0.70-1.30) mg/dL 0.8 Est GFR (CKD-EPI 2020) (mL/min/1.73m2) 110.53 Glucose (74-106) mg/dL 97 Calcium (8.5-10.1) mg/dL 8.8 Total Bilirubin (0.2-1.0) mg/dL 0.54 AST (15-37) U/L 15 ALT (16-63) U/L 26 Alkaline Phosphatase (46-116) U/L 53 Total Protein (6.4-8.2) g/dL 7.5 Albumin (3.4-5.0) g/dL 3.5 Medical Decision Making Emergent evaluation of cough. Patient has had recent COVID infection and at this time does not have significant signs of respiratory distress or failure. Plan for bronchodilators, steroids, will check lab work to evaluate for systemic illness and chest x-ray to see for pneumonia. Lab work reviewed, no leukocytosis, no leukopenia either. Hemoglobin is stable. Electrolytes without derangement or signs of dehydration. Chest x-ray reviewed, there consolidation pulmonary edema likely. After the breathing treatments, the patient has significant improvement symptoms. His lung sounds are clear bilaterally. I do not feel that he needs any additional antibiotics for continuation treatment. He will be discharged with an albuterol inhaler and MDI with instructions for use. Possible medication was sent to the pharmacy, Phenergan. Also instructed to start Claritin and Mucinex to help with his mucus. Recommend close follow-up with PCP and return precautions advised. Medical Records Medical records reviewed: Yes I reviewed the patient's medical records. Lab Data Lab results reviewed: Yes I reviewed the patient's lab results. Quality:SDOH Health Related Social Needs: No Data to Display PFSH All Active Problems Post-COVID chronic cough (Acute) Bursitis of right shoulder (Acute) Pain in joint, foot, left (Acute) Contracture of left Achilles tendon (Acute) Foot pain (Acute) Plantar fasciitis (Acute) Hiatal hernia (Chronic) Peptic duodenitis (Acute) Eosinophilic esophagitis (Acute) Tendonitis of long head of biceps brachii of right shoulder (Acute) De Quervain's tenosynovitis, left (Acute) Calcific tendinitis of right shoulder (Acute) Steroid injection: 12/28/2021 POCUS INJECTION 03/06/23 Esophageal dysphagia (Acute) Medical History Eczema Acne rosacea Ankle pain, right Allergic rhinitis Lower urinary tract symptoms Family history of prostate cancer Follicular cyst of skin and subcutaneous tissue Pain in right shoulder Skin lesion Tinea unguium Dysphagia, pharyngeal phase Surgical History History of colonoscopy with polypectomy H/O removal of neck cyst @ [facility] – [place] - Teenager Family History Mother Pancreatic cancer Father CHF (congestive heart failure) Maternal Uncle History of prostate cancer Social History Smoking/Tobacco Use Status: Never Smoking risk assessment performed?: Yes Alcohol Intake: never Drug use: Never Substance use type: does not use Number of Children: 2 Pets and animals: Yes (2) Pets and animals: dog(s) Do you feel safe at home: Yes Do you feel safe in your relationship?: Yes
== END 2023-12-09 12:49 | disposition home or self-care (01) ==
LOC: ER 12:37
PROVIDERS: Emergency Provider Emergency Medicine; PCP Family Medicine
DX: R05.9 Cough, unspecified (principal); U09.9 Post COVID-19 condition, unspecified
CPT/HCPCS: 36415; 80053; 93005; 94640; 96360; 99285; 71046; 85025; 93010; 99284; J2919; J7620